=== PATIENT | male | born 1990 | race African-American/Black ===

== ENCOUNTER 2020-03-15 14:17 | Emergency (ER) | payer OTHER ==
[~2020-03-15] VITALS: Ht 165.1 cm; Wt 84.2 kg
== END 2020-03-15 15:30 | disposition home or self-care (01) ==
LOC: ER 14:17
DX: S93.402A Sprain of unspecified ligament of left ankle, initial encounter (principal); W01.0XXA Fall on same level from slipping, tripping and stumbling without subsequent striking against object, initial encounter
CPT/HCPCS: 73610; 99283-25

== ENCOUNTER 2020-04-28 12:18 | Emergency (ER) | payer OTHER ==
[~2020-04-28] VITALS: Ht 170.2 cm; Wt 81.7 kg
== END 2020-04-28 13:16 | disposition left against medical advice (07) ==
LOC: ER 12:18
DX: Z53.21 Procedure and treatment not carried out due to patient leaving prior to being seen by health care provider (principal)

== ENCOUNTER 2020-05-01 17:29 | Emergency (ER) | payer OTHER ==
[~2020-05-01] VITALS: Ht 167.6 cm; Wt 81.7 kg
== END 2020-05-01 19:35 | disposition home or self-care (01) ==
LOC: ER 17:29
DX: F32.9 Major depressive disorder, single episode, unspecified (principal); R45.851 Suicidal ideations; F43.9 Reaction to severe stress, unspecified; F17.200 Nicotine dependence, unspecified, uncomplicated
CPT/HCPCS: 99284

== ENCOUNTER 2020-06-19 17:03 | Emergency (ER) | payer OTHER ==
[~2020-06-19] VITALS: Ht 165.1 cm; Wt 86.2 kg
[2020-06-19] MEDS ORDERED: ZOLOFT50 MG PO (17:14)
[2020-06-19] MEDS ORDERED: Norco 5-325 Ta1 EACH PO (19:50)
[2020-06-19] MEDS ORDERED: IBUP800 PO (19:50)
== END 2020-06-19 20:28 | disposition home or self-care (01) ==
LOC: ER 17:03
DX: S12.501A Unspecified nondisplaced fracture of sixth cervical vertebra, initial encounter for closed fracture (principal); S39.012A Strain of muscle, fascia and tendon of lower back, initial encounter; F32.9 Major depressive disorder, single episode, unspecified; Z79.899 Other long term (current) drug therapy; F17.200 Nicotine dependence, unspecified, uncomplicated; V48.5XXA Car driver injured in noncollision transport accident in traffic accident, initial encounter; Y92.410 Unspecified street and highway as the place of occurrence of the external cause
CPT/HCPCS: 70450; 72125; 73562-RT; 96374; 96375; 99285-25; J2270; L0160

== ENCOUNTER 2020-08-03 19:05 | Emergency (ER) | payer OTHER ==
[~2020-08-03] VITALS: Ht 167.6 cm; Wt 90.7 kg
[~2020-08-03 19:05] MED LIST: IBUP800 PO; Norco 5-325 Ta1 EACH PO; ZOLOFT50 MG PO
== END 2020-08-03 20:52 | disposition home or self-care (01) ==
LOC: ER 19:05
DX: S12.500A Unspecified displaced fracture of sixth cervical vertebra, initial encounter for closed fracture (principal); Z79.899 Other long term (current) drug therapy; V89.2XXA Person injured in unspecified motor-vehicle accident, traffic, initial encounter
CPT/HCPCS: 72040; 99283-25

== ENCOUNTER 2020-11-29 19:28 | Emergency (ER) | payer OTHER ==
[~2020-11-29] VITALS: Ht 165.1 cm; Wt 77.1 kg
[2020-11-29 19:54] LABS: BASOPHILS ABSOLUTE AUTO 0.04 K/mm3 (0.00-0.23); BASOPHILS PERCENT AUTO 1 % (0-2); EOSINOPHILS ABSOLUTE AUTO 0.07 K/mm3 (0.00-0.68); EOSINOPHILS PERCENT AUTO 2 % (0-6); Hemoglobin 13.2 g/dL (13.5-17.5); IMMATURE GRAN ABSOLUTE AUTO 0.01 K/mm3 (0.00-0.10); IMMATURE GRAN PERCENT AUTO 0 % (0-1); LYMPHOCYTES ABSOLUTE AUTO 1.95 K/mm3 (0.84-5.20); LYMPHOCYTES PERCENT AUTO 44 % (21-46); MONOCYTES ABSOLUTE AUTO 0.52 K/mm3 (0.16-1.47); MONOCYTES PERCENT AUTO 12 % (4-13); Mean Corpuscular HGB 28.7 pg (26.0-34.0); Mean Corpuscular HGB Conc 32.2 g/dL (31.5-36.5); Mean Corpuscular Volume 89 fL (80-100); Mean Platelet Volume 12.9 fL (9.1-12.4); NEUTROPHILS ABSOLUTE AUTO 1.85 K/mm3 (1.96-9.15); NEUTROPHILS PERCENT AUTO 42 % (41-73); Platelet Count 152 K/mm3 (150-400); RDW Coefficient Variation 15.2 % (11.7-14.2); RDW Standard Deviation 50.3 fL (35.1-46.3); White Blood Cell Count 4.44 K/mm3 (4.00-11.30)
== END 2020-11-29 20:42 | disposition home or self-care (01) ==
LOC: ER 19:28
PROVIDERS: Emergency Medicine
DX: R07.9 Chest pain, unspecified (principal); R11.2 Nausea with vomiting, unspecified; R19.7 Diarrhea, unspecified; F17.200 Nicotine dependence, unspecified, uncomplicated; Z79.899 Other long term (current) drug therapy
CPT/HCPCS: 36415; 85025; 93005; 93010; 99283-25; A9270

== ENCOUNTER 2020-12-20 16:59 | Emergency (ER) | payer OTHER ==
[~2020-12-20] VITALS: Ht 165.1 cm; Wt 81.7 kg
== END 2020-12-20 17:43 | disposition home or self-care (01) ==
LOC: ER 16:59
DX: S60.221A Contusion of right hand, initial encounter (principal); F17.200 Nicotine dependence, unspecified, uncomplicated; W01.10XA Fall on same level from slipping, tripping and stumbling with subsequent striking against unspecified object, initial encounter
CPT/HCPCS: 73120; 99283-25

== ENCOUNTER 2021-05-02 11:27 | Emergency (ER) | payer OTHER ==
[~2021-05-02] VITALS: Ht 165.1 cm; Wt 79.4 kg
[2021-05-02 13:08] LABS: BASOPHILS ABSOLUTE AUTO 0.05 K/mm3 (0.00-0.23); BASOPHILS PERCENT AUTO 1 % (0-2); EOSINOPHILS PERCENT AUTO 3 % (0-6); Hemoglobin 13.5 g/dL (13.5-17.5); IMMATURE GRAN PERCENT AUTO 0 % (0-1); LYMPHOCYTES ABSOLUTE AUTO 1.81 K/mm3 (0.84-5.20); LYMPHOCYTES PERCENT AUTO 46 % (21-46); MONOCYTES ABSOLUTE AUTO 0.58 K/mm3 (0.16-1.47); MONOCYTES PERCENT AUTO 15 % (4-13); Mean Corpuscular HGB 28.8 pg (26.0-34.0); Mean Corpuscular HGB Conc 31.4 g/dL (31.5-36.5); Mean Corpuscular Volume 92 fL (80-100); NEUTROPHILS ABSOLUTE AUTO 1.43 K/mm3 (1.96-9.15); NEUTROPHILS PERCENT AUTO 36 % (41-73); Platelet Count 173 K/mm3 (150-400); RDW Coefficient Variation 15.4 % (11.7-14.2); RDW Standard Deviation 51.3 fL (35.1-46.3); Red Blood Cell Count 4.68 M/mm3 (4.30-5.90); White Blood Cell Count 3.97 K/mm3 (4.00-11.30)
[2021-05-02 13:29] LABS: Alanine Aminotransfer (ALT/SGP 20 U/L (12-78); Albumin, Blood 4.2 g/dL (3.4-5.0); Albumin/Globulin Ratio 1.1 (0.8-1.8); Alk Phos 53 U/L (50-136); Anion Gap 7 mmol/L (6-16); Aspartate Aminotrans (AST/SGOT 15 U/L (12-37); Bilirubin, Total 0.5 mg/dL (0.1-1.0); Blood Urea Nitrogen 12 mg/dL (8-24); Bun/Creatinine Ratio 12.1 (12.0-20.0); CO2, Blood 27 mmol/L (21-32); Calcium, Blood 8.7 mg/dL (8.5-10.1); Chloride, Blood 107 mmol/L (98-108); Creatinine, Blood 0.99 mg/dL (0.60-1.20); Globulin, Blood 3.7 g/dL (2.2-4.0); Glomerular Filtration Rate >60 (60-); Glucose, Blood 86 mg/dL (70-99); Potassium, Blood 4.3 mmol/L (3.5-5.5); Sodium, Blood 141 mmol/L (136-145); Total Protein, Blood 7.9 g/dL (6.4-8.2)
[2021-05-02 14:21] LABS: Source, Urine Clean Catch
[2021-05-02 14:35] LABS: Appearance, Urine Clear (Clear); Bilirubin, Urine Neg (Neg); Blood, Urine Neg (Neg); Color, Urine Yellow (P-Yellow); Glucose Qualitative, Urine Neg (Neg); Ketones, Urine Neg (Neg); Leukocyte Esterase, Urine Neg (Neg); Nitrite, Urine Neg (Neg); Protein, Urine Neg (Neg); Urobilinogen, Urine NORM (Normal); pH, Urine 6.5 (5.0-8.0)
[2021-05-02] MEDS ORDERED: SUCR1 PO (15:37)
[2021-05-02] MEDS ORDERED: PANT40 PO (15:37)
== END 2021-05-02 16:16 | disposition home or self-care (01) ==
LOC: ER 11:27
PROVIDERS: Emergency Medicine
DX: R10.13 Epigastric pain (principal); R10.811 Right upper quadrant abdominal tenderness; F17.200 Nicotine dependence, unspecified, uncomplicated
CPT/HCPCS: 36415; 80053; 81003; 83690; 85025; 99283